=== PATIENT | female | born 1975 | race Caucasian/White ===

== ENCOUNTER → 2023-08-11 06:27 | Day surgery (SDC) | payer OTHER, SELFPAY | LOC: GI 06:27 | PROVIDERS: ATTENDING PHYSICIAN Internal Medicine Gastroenterology | DX: Z12.11 Encounter for screening for malignant neoplasm of colon (principal); D12.4 Benign neoplasm of descending colon; K51.40 Inflammatory polyps of colon without complications | CPT/HCPCS: 45385; 45380; 88305 ==

== ENCOUNTER → 2023-10-25 15:16 | Outpatient (REF) | payer OTHER, SELFPAY | LOC: WDC 15:16 | PROVIDERS: ATTENDING PHYSICIAN Physician Assistant Medical | DX: Z12.31 Encounter for screening mammogram for malignant neoplasm of breast (principal) | CPT/HCPCS: 77063; 77067 ==

== ENCOUNTER → 2024-10-25 15:17 | Outpatient (REF) | payer OTHER, SELFPAY | LOC: WDC 15:17 | PROVIDERS: ATTENDING PHYSICIAN Physician Assistant Medical | DX: Z12.31 Encounter for screening mammogram for malignant neoplasm of breast (principal) | CPT/HCPCS: 77063; 77067 ==